=== PATIENT | female | born 1960 | race Caucasian/White ===

== ENCOUNTER 2022-07-19 13:33 | Observation (INO) ==
[2022-07-19] MEDS ORDERED: fentaNYL citrate PF 100 MCG/2 ML VIAL IV STA (13:56)
--- NOTE | 2022-07-19 13:56 | Emergency Department Note ---
History of Present Illness General Chief complaint: Back Injury/Pain Stated complaint: BACK PAIN Time Seen by Provider: 07/19/22 13:40 History of Present Illness Maximum Pain Intensity: 9 This is a 61-year-old female that presents to the emergency department via private vehicle accompanied by sister with complaints of "back pain". The patient notes that earlier today she was operating a string tremor when she notes that while operating it she began with some right mid/upper back pain. She notes it radiates/wraps around to the right lateral ribs. She has never had this happen before. She then went to set the string tremor on the ground and while bending down and then standing back up she felt a tremendous amount of pain to the same region as noted above. She denies any known trauma to the area. She tried a hot bath as well as 800 mg of ibuprofen without any relief. She then notes that she did take 16 mg of morphine sulfate at home that did not seem to help her pain either. She does note recent MRI of the L-spine for left- sided lumbar radiculopathy but this feels completely different. Pain does not radiate down her legs. She notes a tingling sensation in the bilateral hands and feet. She denies any headache or neck pain. No chest pain or abdominal pain. No lower extremity weakness, bowel or bladder incontinence, numbness or tingling in the genital region. Home Medications Medication Instructions Recorded Confirmed Type buspirone 15 mg tablet 15 mg PO QID PRN Anxiety 07/19/22 07/19/22 History fluoxetine 40 mg capsule 80 mg PO DAILY 07/19/22 07/19/22 History omeprazole 20 mg capsule,delayed 20 mg PO DAILY 07/19/22 07/19/22 History release Allergies Allergy/AdvReac Type Severity Reaction Status Date / Time Penicillins Allergy Unknown Verified 07/19/22 18:14 Past Med/Surg History Medical History Depression History of migraine Surgical History No pertinent past surgical history Family History Mother Atrial fibrillation Father Atrial fibrillation Social History Smoking Status: Former smoker Hx Alcohol Use: No Hx Substance Use: No Preferred Language: Jamaican Communication Ability: Effective Independent Living Specialist Required: No Beliefs That Will Affect Care: None Current Living Situation: Alone Feels Safe at Home: Yes Safety Concerns: Feels Safe At This Time Assistive Devices: Denture - Upper, Denture - Lower and Glasses Review of Systems A total of 10 systems reviewed and were otherwise negative Physical Exam Vital Signs Vital Signs - 24 hr 07/19/22 13:36 07/19/22 14:13 07/19/22 14:25 Temperature 36.9 C Temperature Source Temporal Artery Scan Pulse Rate 78 Pulse Rate [Apical] 72 Pulse Rate from SpO2 Sensor Respiratory Rate 19 19 Respiratory Effort / Characteristics Non-Labored Spontaneous Blood Pressure 113/70 Blood Pressure Mean 84 Pulse Oximetry 100 98 100 Oxygen Delivery Method Room Air Room Air Room Air Sepsis Recent Fever Within 48 Hours No Sepsis New/Unexplained Change in Mental Status N/A Sepsis Action Taken by Nursing No Action Required 07/19/22 14:27 07/19/22 15:20 07/19/22 16:15 Temperature Temperature Source Pulse Rate 74 79 70 Pulse Rate [Apical] Pulse Rate from SpO2 Sensor 70 Respiratory Rate 19 15 Respiratory Effort / Characteristics Blood Pressure 119/67 Blood Pressure Mean 84 Pulse Oximetry 100 99 Oxygen Delivery Method Room Air Room Air Sepsis Recent Fever Within 48 Hours Sepsis New/Unexplained Change in Mental Status Sepsis Action Taken by Nursing VITAL SIGNS - Vital signs and triage nursing notes were reviewed. Stable and afebrile. GENERAL -61-year-old female appearing her stated age who is in no acute distress but appears to be in pain and is sitting in a wheelchair at bedside. Communicates well with provider and answers questions appropriately. SKIN - Without rashes. No meningeal or petechial rash. The skin overlying the right upper back is unremarkable. No erythema or edema. No break in the integument. HEAD - NC/AT. EYES - PERRL with EOMI bilaterally. Sclera anicteric. EARS - No deformities of external structures noted on gross examination bilaterally. NOSE - Midline and without cyanosis. No epistaxis or purulent drainage noted. MOUTH/OROPHARYNX - Without perioral cyanosis. NECK - Neck with FROM. No nuchal rigidity. LUNGS - Chest wall symmetric without accessory muscle use, intercostals retractions, or central cyanosis. Normal vesicular breath sounds CTA B/L. No wheezes, rales, or rhonchi appreciated. CARDIAC - RRR with S1/S2. No murmur, rubs, or gallops appreciated. ABDOMEN - Abdominal contour normal without pulsations or visible masses. BS norm oactive all four quadrants. No tenderness, palpable masses, hepatosplenomegaly, or ascites noted. EXTREMITIES - No clubbing or peripheral cyanosis. +5/5 strength noted in UE/LE bilaterally. NEUROLOGIC - Cranial nerves II through XII grossly intact. I am unable to reproduce the tenderness of the mid/upper back region with palpation. No crepitus. No herpetic lesions. PSYCH - A&Ox3 and cooperates fully with examiner. Pt is very pleasant and interacts well with examiner. Course Administered Medications Acetaminophen (Acetaminophen 500 Mg Tab) 1,000 mg PO Q8 KO Stop: 08/18/22 18:44 Last Admin: 07/20/22 06:27 Dose: 1,000 mg Documented By: Admin: 07/19/22 20:42 Dose: 1,000 mg Documented By: MADIE Enoxaparin Sodium (Enoxaparin Inj 40 Mg/0.4 Ml Syr) 40 mg SQ Q24H KO Stop: 08/18/22 18:59 Last Admin: 07/19/22 20:49 Dose: Not Given Documented By: MADIE Hydromorphone HCl (Hydromorphone Inj 0.5 Mg/0.5 Ml Syr) 0.5 mg IV Q6H PRN PRN Reason: Pain Stop: 08/02/22 18:40 Last Admin: 07/20/22 02:34 Dose: 0.5 mg Documented By: Admin: 07/19/22 18:58 Dose: 0.5 mg Documented By: AM Pantoprazole Sodium (Pantoprazole 40 Mg Tab) 40 mg PO DAILY KO Stop: 08/19/22 08:59 Last Admin: 07/20/22 09:06 Dose: 40 mg Documented By: GUILLERMINA Tramadol HCl (Tramadol Hcl 50 Mg Tablet) 50 mg PO Q4H PRN PRN Reason: MODERATE Pain (4,5,6) & Pre PT Stop: 08/18/22 18:28 Last Admin: 07/20/22 06:30 Dose: 50 mg Documented By: Admin: 07/19/22 22:57 Dose: 50 mg Documented By: MADIE Discontinued Medications Diazepam (Diazepam 2 Mg Tablet) 2 mg PO NOW ONE Stop: 07/19/22 20:46 Last Admin: 07/19/22 20:58 Dose: 2 mg Documented By: MADIE Fentanyl Citrate (Fentanyl Citrate Pf 100 Mcg/2 Ml Vial) 50 mcg IV NOW STA Stop: 07/19/22 13:57 Last Admin: 07/19/22 14:05 Dose: 50 mcg Documented By: Hydromorphone HCl (Hydromorphone Inj 0.5 Mg/0.5 Ml Syr) 0.5 mg IV NOW STA Stop: 07/19/22 15:00 Last Admin: 07/19/22 15:04 Dose: 0.5 mg Documented By: RACHAEL Hydromorphone HCl (Hydromorphone Inj 0.5 Mg/0.5 Ml Syr) 0.25 mg IV NOW STA Stop: 07/19/22 16:17 Last Admin: 07/19/22 16:30 Dose: 0.25 mg Documented By: RACHAEL Ioversol (Optiray 320 500ml) 120 ml IV ONCE ONE Stop: 07/19/22 15:16 Last Admin: 07/19/22 15:16 Dose: 120 ml Documented By: RADHA Lidocaine (Lidocaine 5% 1 Patch) 1 patch TD NOW STA Stop: 07/19/22 13:58 Last Admin: 07/19/22 14:08 Dose: 1 patch Documented By: VIKTORIA Medical Decision Making Laboratory Data 07/19/22 14:10 07/19/22 14:10 Lab Results 07/19/22 07/19/22 07/19/22 Range/Units 14:10 14:10 15:08 WBC 9.69 (4.8-10.8) K/ul RBC 4.41 (4.20-5.40) M/uL Hgb 12.0 (12.0-16.0) g/dl Hct 37.2 (37.0-47.0) % MCV 84.4 (80.0-100.0) fL MCH 27.2 (25.0-34.0) pg MCHC 32.3 (32.0-36.0) g/dL RDW Std Deviation 44.3 (36.4-46.3) fL RDW Coeff of Dontae 14.5 (11.5-14.5) % Plt Count 353 (130-400) K/uL MPV 10.4 (9.4-12.4) fL Immature Gran % (Auto) 0.3 % Neut % (Auto) 76.4 % Lymph % (Auto) 14.4 % Bledsoe % (Auto) 5.9 % Eos % (Auto) 2.6 % Baso % (Auto) 0.4 % Neut # (Auto) 7.40 H (1.40-6.50) K/uL Lymph # (Auto) 1.40 (1.2-3.4) K/uL Bledsoe # (Auto) 0.57 (0.11-0.59) K/uL Eos # (Auto) 0.25 (0-0.50) K/uL Baso # (Auto) 0.04 (0-0.2) K/uL Immature Gran # (Auto) 0.03 (0.01-0.20) K/uL Sodium 138 (136-145) mmol/L Potassium 3.8 (3.5-5.1) mmol/L Chloride 104 (98-107) mmol/L Carbon Dioxide 27 (21-32) mmol/L Anion Gap 7 (3-11) BUN 12 (6-23) mg/dl Creatinine 0.69 (0.6-1.2) mg/dl Est Cr Clr Drug Dosing 73.0 ml/min Est GFR ( Amer) 108.1 ml/min Est GFR (Non-Af Amer) 93.3 ml/min BUN/Creatinine Ratio 17.4 (10-20) Glucose 106 H (70-99(Fasting)) mg/dl Calcium 9.5 (8.6-10.3) mg/dl Total Bilirubin 0.5 (0.2-1.0) mg/dl AST 23 (13-39) U/L ALT 16 (7-52) U/L Alkaline Phosphatase 49 (34-104) U/L Troponin I High Sens 31.2 H (0-14) pg/ml Total Protein 6.4 (6.0-8.3) gm/dl Albumin 4.1 (3.4-5.0) gm/dl Globulin 2.3 L (2.5-4.0) gm/dl Albumin/Globulin Ratio 1.8 (0.9-2) SARS-CoV-2, RNA, NAAT NEGATIVE (NEGATIVE) Imaging Data Radiologist's Impression: Thoracic Spine X-Ray 07/19/22 13:56 XR thoracic spine 3V routine CLINICAL HISTORY: R sided mid/upper back pain TECHNIQUE: 3 views of the thoracic spine were obtained. Comparison: None available at the time of this dictation. FINDINGS: No fractures or subluxations are identified. Degenerative changes are seen in the thoracic spine. Alignment appears unremarkable. Prevertebral soft tissues are within normal limits. IMPRESSION: Degenerative changes as above without acute fracture or subluxation. ACT 112: Negative or not required by law. Electronically signed by: Vicente Aguilar M.D. 07/19/2022 3:03 PM Chest CTA 07/19/22 14:59 CT angio chest dissec wo/w con, CT thoracic spine wo con CLINICAL HISTORY: R mid/upper back pain, elevated troponin TECHNIQUE: Multidetector row helical CT of the chest was performed before and after injection of IV contrast. Coronal and sagittal reformations were obtained. Dedicated views of the spine were obtained. Automated dose lowering techniques and/or adjustment according to patient size were utilized for this exam. CT DOSE: 416.29 mGy.cm Comparison: None available at the time of this dictation. FINDINGS: Lungs and pleura: Normal. Heart and pericardium: Heart size is normal. No pericardial effusion. Vessels: No aortic dissection or intramural hematoma is seen. No pulmonary embolus within the limits of a nondedicated exam. Mediastinum and amelie: Scattered partially calcified lymph nodes are seen. Chest wall and lower neck: Small thyroid nodules are noted which do not require follow-up by ACR criteria. Abdomen: Unremarkable. Bones: Unremarkable. No evidence of acute fracture. IMPRESSION: 1. No acute abnormality and in particular no evidence of acute aortic injury or vertebral fracture. 2. A few calcified mediastinal and paraesophageal lymph nodes noted which may represent prior granulomatous disease. ACT 112: Negative or not required by law. Electronically signed by: Vicente Aguilar M.D. 07/19/2022 4:[address] 07/19/22 15:02 CT angio chest dissec wo/w con, CT thoracic spine wo con CLINICAL HISTORY: R mid/upper back pain, elevated troponin TECHNIQUE: Multidetector row helical CT of the chest was performed before and after injection of IV contrast. Coronal and sagittal reformations were obtained. Dedicated views of the spine were obtained. Automated dose lowering techniques and/or adjustment according to patient size were utilized for this exam. CT DOSE: 416.29 mGy.cm Comparison: None available at the time of this dictation. FINDINGS: Lungs and pleura: Normal. Heart and pericardium: Heart size is normal. No pericardial effusion. Vessels: No aortic dissection or intramural hematoma is seen. No pulmonary embolus within the limits of a nondedicated exam. Mediastinum and amelie: Scattered partially calcified lymph nodes are seen. Chest wall and lower neck: Small thyroid nodules are noted which do not require follow-up by ACR criteria. Abdomen: Unremarkable. Bones: Unremarkable. No evidence of acute fracture. IMPRESSION: 1. No acute abnormality and in particular no evidence of acute aortic injury or vertebral fracture. 2. A few calcified mediastinal and paraesophageal lymph nodes noted which may represent prior granulomatous disease. ACT 112: Negative or not required by law. Electronically signed by: Vicente Aguilar M.D. 07/19/2022 4:03 PM [facility] Narrative Patient was seen and evaluated as above in room D02. Review was performed of triage nursing notes and vital signs. After obtaining a thorough history and physical examination the above work up was performed. Patient presents to us today for evaluation of right upper back pain. She appears to be in pain on examination. Her vital signs are stable. There is no fever. No infectious symptoms. No chest pain however she does note the right upper back pain does wrap around to the right lateral rib region. Options of care were discussed with the patient. IV access was established. Labs were drawn. EKG was obtained and reveals normal sinus rhythm at a rate of 70 bpm. QTc 520. QRS 72. TWI noted in leads III, aVF. No ST elevation. Prolonged QT noted. Patient was medicated here with IV analgesia and lidocaine patch. T-spine x-ray was obtained and was essentially negative. Labs reveal no leukocytosis or concerning anemia. No emergent metabolic disturbance. Trop onin was elevated at 31.2. No previous for comparison. With the patient having right upper back pain that wraps around to the right lateral rib/lateral chest wall with minimal improvement with IV analgesia, I did find it reasonable to proceed with CT a of the chest as well as T-spine recon. Results as above. No acute intrathoracic abnormality. With the patient having elevated troponin in the setting of ongoing discomfort despite IV analgesia I do believe that further evaluation and management inpatient setting is warranted. I do suspect that the patient's right upper back pain is likely musculoskeletal however at this time we will continue further work-up. Patient amenable to plan of care. Please refer to further documentation regarding her stay. GCS: 15 In the evaluation and treatment of this patient the following differential diagnoses were entertained: Dissection, PE, pneumothorax, hemothorax, rib fracture, thoracic spine hematoma, thoracic spine radiculopathy, strain, sprain, ACS, among others Impression & Plan Muscle strain, Elevated troponin Discharge Plan Visit Data Chief Complaint: Back Injury/Pain Stated Complaint: BACK PAIN ED Provider: Wilver Thompson ED Midlevel Provider: Jamar Arenas Discharge Problem: Muscle strain, Elevated troponin Patient Disposition: Admitted As Inpatient Condition: Good Discharge Instructions Interventions: ED Discharge Assessment Last Done: 07/19/22 17:11
[2022-07-19] MEDS ORDERED: LIDOCAINE 5% 1 PATCH TD STA (13:57)
[2022-07-19 14:34] LABS: Basophils # (auto) 0.04 K/uL (0-0.2); Basophils % (auto) 0.4 %; Eosinophils # (auto) 0.25 K/uL (0-0.50); Eosinophils % (auto) 2.6 %; Hematocrit (blood only) 37.2 % (37.0-47.0); Immature Granulocytes # (auto) 0.03 K/uL (0.01-0.20); Immature Granulocytes % (auto) 0.3 %; Lymphocytes % (auto) 14.4 %; Mean Corpuscular Hemoglobin 27.2 pg (25.0-34.0); Mean Corpuscular Hgb Conc 32.3 g/dL (32.0-36.0); Mean Corpuscular Volume 84.4 fL (80.0-100.0); Mean Platelet Volume 10.4 fL (9.4-12.4); Monocytes # (auto) 0.57 K/uL (0.11-0.59); Monocytes % (auto) 5.9 %; Neutrophils % (auto) 76.4 %; Platelet Count 353 K/uL (130-400); RDW Coefficient of Variation 14.5 % (11.5-14.5); RDW Standard Deviation 44.3 fL (36.4-46.3); Red Blood Count 4.41 M/uL (4.20-5.40); White Blood Count 9.69 K/ul (4.8-10.8)
[2022-07-19 14:42] LABS: Albumin Globulin Ratio 1.8 (0.9-2); Albumin Level 4.1 gm/dl (3.4-5.0); BUN Creatinine Ratio 17.4 (10-20); Bilirubin,Total 0.5 mg/dl (0.2-1.0); Calcium 9.5 mg/dl (8.6-10.3); Est GFR (African American) 108.1 ml/min; Est GFR (Non-African American) 93.3 ml/min; Globulin 2.3 gm/dl (2.5-4.0); Potassium 3.8 mmol/L (3.5-5.1); Total Protein 6.4 gm/dl (6.0-8.3)
[2022-07-19 14:49] LABS: Troponin I High Sensitivity 31.2 pg/ml (0-14)
[2022-07-19] MEDS ORDERED: HYDROmorphone INJ 0.5 MG/0.5 ML SYR IV STA ×2 (14:59→16:16)
--- NOTE | 2022-07-19 15:04 | XRay Report ---
XR thoracic spine 3V routine CLINICAL HISTORY: R sided mid/upper back pain TECHNIQUE: 3 views of the thoracic spine were obtained. Comparison: None available at the time of this dictation. FINDINGS: No fractures or subluxations are identified. Degenerative changes are seen in the thoracic spine. Ali gnment appears unremarkable. Prevertebral soft tissues are within normal limits. IMPRESSION: Degenerative changes as above without acute fracture or subluxation. ACT 112: Negative or not required by law. Electronically signed by: Vicente Aguilar M.D. 07/19/2022 3:03 PM
[2022-07-19] MEDS ORDERED: OPTIRAY 320 500ml IV ONE (15:15)
--- NOTE | 2022-07-19 16:05 | CT Scan Report ---
CT angio chest dissec wo/w con, CT thoracic spine wo con CLINICAL HISTORY: R mid/upper back pain, elevated troponin TECHNIQUE: Multidetector row helical CT of the chest was performed before and after injection of IV c ontrast. Coronal and sagittal reformations were obtained. Dedicated views of the spine were obtained. Automated dose lowering techniques and/or adjustment according to patient size were utilized for thi s exam. CT DOSE: 416.29 mGy.cm Comparison: None available at the time of this dictation. FINDINGS: Lungs and pleura: Normal. Heart and pericardium: Heart size is normal. No pericardial effusion. Vessels: No aortic dissection or intramural hematoma is seen. No pulmonary embolus within the limits of a nondedicated exam. Mediastinum and amelie: Scattered partially calcified lymph nodes are seen. Chest wall and lower neck: Small thyroid nodules are noted which do not require follow-up by ACR ching mccarthy. Abdomen: Unremarkable. Bones: Unremarkable. No evidence of acute fracture. IMPRESSION: 1. No acute abnormality and in particular no evidence of acute aortic injury or vertebral fracture. 2. A few calcified mediastinal and paraesophageal lymph nodes noted which may represent prior granul omatous disease. ACT 112: Negative or not required by law. Electronically signed by: Vicente Aguilar M.D. 07/19/2022 4:03 PM
[2022-07-19] MEDS ORDERED: Patient's ALLERGY Info needs ENTERED SCH (17:15)
[2022-07-19] MEDS ORDERED: diazePAM 2 MG TABLET PO ONE ×2 (18:18→20:45)
--- NOTE | 2022-07-19 18:19 | History & Physical Report ---
Date of Service July 19, 2022 Assessment & Plan (1) Elevated troponin: (2) Acute electrocardiogram changes: (3) Prolonged QT interval: Plan: Admit to telemetry Patient presenting from home for evaluation of right mid back pain after using a weed patti. Pain seems to be MSK in nature. In the ED, found to have mildly elevated troponin and abnormal EKG. HS trop 31.2 --> 30.5 EKG shows T wave inversions in the inferior and anterior leads. No prior EKGs available for comparison. No prior history of stress test or echocardiogram. CTA chest negative for pulmonary embolism Patient reports increased fatigue over the past several months, attributing this to depression from the passing of her in February. No reports of chest pain or shortness of breath. Continue to trend troponin, resting echo in a.m. to evaluate for wall motion abnormality. QTc 520 -- will hold fluoxetine for now, repeat EKG in a.m. Avoid QTc prolonging agents. (4) Muscle strain: Plan: Right mid back pain along latissimus dorsi muscle -- likely muscle strain/spasm from using weed patti today Thoracic spine CT unremarkable Will give one dose Valium 2mg now. Continue with schedule Tylenol and as needed Tramadol for break through pain. (5) Depression: Plan: Holding fluoxetine as above due to prolonged QTc DVT PROPHYLAXIS SQ Lovenox Patient seen in collaboration with Dr. Olsen. I spent a total of 75 minutes coordinating, documenting, and providing care for this patient excluding time spent in the performance of separately billed services. This included personally reviewing all current laboratories and imaging studies, medication reconciliation, outpatient chart review, and discussion with specialists. History of Present Illness Chief Complaint: Right mid back pain Primary Care Provider: Jairo Alicia MD 61-year-old female with PMH depression, osteoporosis, GERD, and other problems listed below who presents to the ED for evaluation of right mid back pain. History obtained from the patient and review of outpatient PCP records. Patient reports she was running a string patti when she started to develop right mid back pain. Patient states she placed the tremor on the ground and when she stood up the pain intensified. Pain is located in the right mid back and radiates around the right ribs. Patient then presented to the ED for further evaluation. Patient notes that she has been feeling increasingly fatigued over the past few months, attributes this to depression from the passing of her in February. Patient denies chest pain and shortness of breath. No lightheadedness, dizziness, diaphoresis, syncopal events. She denies abdominal pain, nausea, vomiting, diarrhea. No other recent illnesses, fevers, chills. She denies urinary symptoms. In the ED, thoracic spine CT and chest CTA are unremarkable for acute findings. HS trop 31.2 --> 30.5. EKG shows T wave inversions in the inferior and anterior leads, no prior EKGs available for comparison. Patient was given IV fentanyl, IV Dilaudid, and a lidocaine patch. She reports improvement in her pain. Allergies Allergy/AdvReac Type Severity Reaction Status Date / Time Penicillins Allergy Unknown Verified 07/19/22 18:14 Home Medications Medication Instructions Recorded Confirmed Type buspirone 15 mg tablet 15 mg PO QID PRN Anxiety 07/19/22 07/19/22 History fluoxetine 40 mg capsule 80 mg PO DAILY 07/19/22 07/19/22 History omeprazole 20 mg capsule,delayed 20 mg PO DAILY 07/19/22 07/19/22 History release Past Med/Surg History Medical History Depression History of migraine Surgical History No pertinent past surgical history Family History Mother Atrial fibrillation Father Atrial fibrillation Social History Smoking Status: Former smoker Hx Alcohol Use: No Hx Substance Use: No Preferred Language: Turkmen Communication Ability: Effective Budget Officer Required: No Beliefs That Will Affect Care: None Current Living Situation: Alone Feels Safe at Home: Yes Safety Concerns: Feels Safe At This Time Assistive Devices: Denture - Upper, Denture - Lower and Glasses Review of Systems Review of Systems: ROS per HPI, all other systems reviewed and negative Physical Exam Constitutional: WD/WN, vitals as above Eyes: PERRL, conjunctivae normal, anicteric sclerae ENMT: external ear and nose normal, oropharynx normal Respiratory: normal respiratory effort, lungs clear to auscultation Cardiovascular: Rate/Rhythm: regular rate and regular rhythm Vessels: normal peripheral pulses Extremities: no edema Gastrointestinal (Abdomen): normal bowel sounds, soft, nontender, no hepatosplenomegaly Musculoskeletal: tenderness to palpation over right latissimus dorsi Skin: no rashes, warm and dry Neurologic: PERRL, EOMI, accommodation nl, no face palsy, no dysarthria Psychiatric: A+Ox3, euthymic affect Results & Data Results & Data Vital Signs (Past 12 Hours) Vital Signs Temp Pulse Pulse Resp BP Pulse Ox O2 Del Method 07/19/22 17:00 74 17 141/94 H 98 Room Air 07/19/22 16:15 70 15 119/67 99 Room Air 07/19/22 15:20 79 19 100 Room Air 07/19/22 14:27 74 07/19/22 14:25 72 19 100 Room Air 07/19/22 14:13 98 Room Air 07/19/22 13:36 36.9 C 78 19 113/70 100 Room Air Laboratory Results Short CBC 07/19/22 Range/Units 14:10 WBC 9.69 (4.8-10.8) K/ul Hgb 12.0 (12.0-16.0) g/dl Hct 37.2 (37.0-47.0) % Plt Count 353 (130-400) K/uL BMP 07/19/22 14:10 Sodium 138 Potassium 3.8 Chloride 104 Carbon Dioxide 27 BUN 12 Creatinine 0.69 Glucose 106 H Calcium 9.5 Liver Function 07/19/22 Range/Units 14:10 Total Bilirubin 0.5 (0.2-1.0) mg/dl AST 23 (13-39) U/L ALT 16 (7-52) U/L Alkaline Phosphatase 49 (34-104) U/L Albumin 4.1 (3.4-5.0) gm/dl Diagnostic Findings Thoracic Spine X-Ray 07/19/22 13:56 XR thoracic spine 3V routine CLINICAL HISTORY: R sided mid/upper back pain TECHNIQUE: 3 views of the thoracic spine were obtained. Comparison: None available at the time of this dictation. FINDINGS: No fractures or subluxations are identified. Degenerative changes are seen in the thoracic spine. Alignment appears unremarkable. Prevertebral soft tissues are within normal limits. IMPRESSION: Degenerative changes as above without acute fracture or subluxation. ACT 112: Negative or not required by law. Electronically signed by: Vicente Aguilar M.D. 07/19/2022 3:03 PM Chest CTA 07/19/22 14:59 CT angio chest dissec wo/w con, CT thoracic spine wo con CLINICAL HISTORY: R mid/upper back pain, elevated troponin TECHNIQUE: Multidetector row helical CT of the chest was performed before and after injection of IV contrast. Coronal and sagittal reformations were obtained. Dedicated views of the spine were obtained. Automated dose lowering techniques and/or adjustment according to patient size were utilized for this exam. CT DOSE: 416.29 mGy.cm Comparison: None available at the time of this dictation. FINDINGS: Lungs and pleura: Normal. Heart and pericardium: Heart size is normal. No pericardial effusion. Vessels: No aortic dissection or intramural hematoma is seen. No pulmonary embolus within the limits of a nondedicated exam. Mediastinum and amelie: Scattered partially calcified lymph nodes are seen. Chest wall and lower neck: Small thyroid nodules are noted which do not require follow-up by ACR criteria. Abdomen: Unremarkable. Bones: Unremarkable. No evidence of acute fracture. IMPRESSION: 1. No acute abnormality and in particular no evidence of acute aortic injury or vertebral fracture. 2. A few calcified mediastinal and paraesophageal lymph nodes noted which may represent prior granulomatous disease. ACT 112: Negative or not required by law. Electronically signed by: Vicente Aguilar M.D. 07/19/2022 4:[address] 07/19/22 15:02 CT angio chest dissec wo/w con, CT thoracic spine wo con CLINICAL HISTORY: R mid/upper back pain, elevated troponin TECHNIQUE: Multidetector row helical CT of the chest was performed before and after injection of IV contrast. Coronal and sagittal reformations were obtained. Dedicated views of the spine were obtained. Automated dose lowering techniques and/or adjustment according to patient size were utilized for this exam. CT DOSE: 416.29 mGy.cm Comparison: None available at the time of this dictation. FINDINGS: Lungs and pleura: Normal. Heart and pericardium: Heart size is normal. No pericardial effusion. Vessels: No aortic dissection or intramural hematoma is seen. No pulmonary embolus within the limits of a nondedicated exam. Mediastinum and amelie: Scattered partially calcified lymph nodes are seen. Chest wall and lower neck: Small thyroid nodules are noted which do not require follow-up by ACR criteria. Abdomen: Unremarkable. Bones: Unremarkable. No evidence of acute fracture. IMPRESSION: 1. No acute abnormality and in particular no evidence of acute aortic injury or vertebral fracture. 2. A few calcified mediastinal and paraesophageal lymph nodes noted which may represent prior granulomatous disease. ACT 112: Negative or not required by law. Electronically signed by: Vicente Aguilar M.D. 07/19/2022 4:03 PM Code Status & VTE Plan VTE Prophylaxis Plan VTE Prophylaxis will be ordered: Yes Supervising Physician Co-Signing Physician Notes Patient was seen and examined independently at bedside. Chart reviewed. Case discussed with Duyen FUENTES and agree with the documentation above except as noted below. In summary, this is a 61 year old female who presented to the ED with right mid back pain, likely MSK. CT reviewed. During my encounter, she states she is in 7/10 pain and asking for pain meds. States morphine and fentanyl did not help but dilaudid did. Agree with pain control- might need MRI and/or ortho eval if continues to have significant pain or neuro symptoms. She was also incidentally found to have minimally elevated troponin along with some EKG changes but there is no prior EKG for comparison. Doubt ACS but agree with serial trop, tele, repeat EKG and echo. Agree with holding further QTc prolonging meds- monitor QTc in repeat EKG in am. On exam- AAO, sitting in bed, in mild discomfort due to pain, chest clear, heart sounds normal, abd benign, non focal neuro exam, no edema. Rest as per the note above.
[2022-07-19] MEDS ORDERED: busPIRone 15 MG TAB PO PRN (18:29)
[2022-07-19] MEDS ORDERED: MoRPHine SULFATE 2 MG/ML CARP IV PRN (18:29)
[2022-07-19] MEDS: HYDROmorphone INJ 0.5 MG/0.5 ML SYR IV PRN (18:58)
[2022-07-19] MEDS ORDERED: ENOXAPARIN INJ 40 MG/0.4 ML SYR SQ SCH (19:00)
[2022-07-19] MEDS: ACETAMINOPHEN 500 MG TAB PO SCH (20:42)
[2022-07-19] MEDS: traMADol HCL 50 MG TABLET PO PRN (22:57)
[2022-07-20] MEDS: HYDROmorphone INJ 0.5 MG/0.5 ML SYR IV PRN (02:34)
[2022-07-20 04:12] LABS: Hemoglobin 10.8 g/dl (12.0-16.0); Mean Corpuscular Hemoglobin 27.2 pg (25.0-34.0); Mean Corpuscular Hgb Conc 31.8 g/dL (32.0-36.0); Mean Corpuscular Volume 85.6 fL (80.0-100.0); Mean Platelet Volume 10.3 fL (9.4-12.4); Platelet Count 302 K/uL (130-400); RDW Coefficient of Variation 14.7 % (11.5-14.5); Red Blood Count 3.97 M/uL (4.20-5.40); White Blood Count 5.89 K/ul (4.8-10.8)
[2022-07-20 04:27] LABS: BUN Creatinine Ratio 13.9 (10-20); Calcium 8.7 mg/dl (8.6-10.3); Chol HDL Ratio 4.6 (0-5); Est GFR (Non-African American) 89.8 ml/min; Potassium 3.8 mmol/L (3.5-5.1)
[2022-07-20] MEDS: ACETAMINOPHEN 500 MG TAB PO SCH ×2 (06:27→14:05)
[2022-07-20] MEDS: traMADol HCL 50 MG TABLET PO PRN ×2 (06:30→12:58)
--- NOTE | 2022-07-20 06:33 | Electrocardiogram Report ---
Test Reason : Blood Pressure : / mmHG Vent. Rate : 070 BPM Atrial Rate : 070 BPM P-R Int : 150 ms QRS Dur : 072 ms QT Int : 482 ms P-R-T Axes : 078 069 036 degrees QTc Int : 520 ms Normal sinus rhythm Possible Anterior infarct , age undetermined Prolonged QT Abnormal ECG No previous ECGs available Confirmed by Jb Warner ([id number]) on 07/20/2022 6:33:24 AM Referred By: REFERRED SELF Confirmed By:Jb Warner
[2022-07-20 07:18] LABS: Appearance Urine Clear (Clear); Bacteria Urine Automated Negative (Negative); Bilirubin Urine Negative (Negative); Blood Urine Trace (Negative); Cast Urine Automated 0 /lpf (0-5); Color Urine Yellow; Epithelial Cell Urine Auto 0-5 /lpf (0-5); Glucose Urine UA Negative (Negative); Ketones Urine Negative (Negative); Leukocyte Esterase Urine Negative (Negative); Nitrite Urine Negative (Negative); Protein Urine Negative (Negative); RBC Urine Automated 0-4 /hpf (0-4); Specific Gravity Urine 1.018 (1.000-1.030); Urobilinogen Urine Negative (Negative)
[2022-07-20 08:10] LABS: Estimated Average Glucose 128 mg/dl; Hemoglobin A1C 6.1 % (4.5-5.6)
--- NOTE | 2022-07-20 08:55 | Electrocardiogram Report ---
Test Reason : Blood Pressure : / mmHG Vent. Rate : 071 BPM Atrial Rate : 071 BPM P-R Int : 176 ms QRS Dur : 084 ms QT Int : 458 ms P-R-T Axes : 079 087 030 degrees QTc Int : 497 ms Normal sinus rhythm Low voltage QRS Cannot rule out Anterior infarct (cited on or before 19-JUL-2022) Abnormal ECG When compared with ECG of 19-JUL-2022 14:16, No significant change was found Confirmed by Claude Erickson ([id number]) on 07/20/2022 8:55:41 AM Referred By: REFERRED SELF Confirmed By:Gm Erickson
--- NOTE | 2022-07-20 08:56 | Cardiology Consultation ---
Date of Consultation July 20, 2022 Assessment & Plan (1) Atypical chest pain: (2) Back pain: (3) Elevated troponin: (4) Prolonged QT interval: Plan IMPRESSION: 61 year old female with no prior cardiac history presented with acute severe right sided back pain after doing yard work yesterday. Currently chest pain free, but back pain persists. Symptoms likely due to an orthopedic/msk cause. Resting Echo pending. PLAN: 1. Symptoms are very atypical with cardiac chest pain, however, given nonspecific EKG changes and HS trop elevation, will rule out ischemia with dobutamine stress echo this afternoon. 2. QTc initially prolonged, Prozac has been held. QTC improved this morning- avoid the use of QTC prolonging agents. Case discussed with Dr. Bush. Supervising Physician Co-Signing Physician Notes Patient seen and examined personally. Full assessment and evaluation as above. Patient with severe back pain incited by mechanical activity atypical for angina or myocardial injury EKGs without acute change other than QT prolongation as above. Echocardiogram with preserved LV systolic function Patient referred this morning and underwent dobutamine stress echocardiography with study demonstrating normal LV systolic function at rest and stress without evidence of ischemia by EKG and echocardiographic criteria. No cardiac symptoms at 90% age-predicted maximal heart Impression: Noncardiac back pain History of Present Illness Reason for Consultation: Chest pain, elevated high-sensitivity troponin, abnormal EKG. Requesting Physician: Viola jung Attending Physician: Gilma Rowan MD History of Present Illness 61-year-old female presented to the [facility] emergency department due to an episode of right-sided back discomfort. Patient was using a weed patti in her yard and started to develop the pain. When she bent over to place the equipment on the ground and stood back up her pain intensified to the point where she could barely stand up. Pain was located in the right mid back and radiated around to the right ribs. Went into her house and took pain medication- first ibuprofen without relief then x1 tablet of morphine (prescribed to her late )- symptoms did not improve. She called her sister who brought her to the ED. In the ED thoracic spine CT and chest CTA were unremarkable for acute findings. She was treated with IV fentanyl, IV Dilaudid, and a lidocaine patch with mild improvement in her pain. High-sensitivity troponins minimally elevated at 31.2 >> 30.5>>37.4>>33.2 EKG showed T wave inversions in the inferior and lateral leads-no prior EKGs available for comparison. QTc was prolonged at 520 ms. Prozac held. Repeat EKG this morning showing normal sinus rhythm with inferior/lateral changes-unchanged from yesterday. QTc mildly improved to 497 ms. She denies any exertional chest pain or shortness of breath. Notes fatigue over the last 3 months which she attributed to stress from the recent passing of her due to cancer. No lightheadedness. No orthopnea, PND or lower extremity edema. Does have leg "heaviness" at times- recently diagnosed with sciatica. Pre viously mentioned numbness and tingling in her BL fingers and toes- now has resolved. She declines any prior cardiac history- Notes her blood pressure is frequently low. Tele: SR 60-70s Past medical history: Osteoporosis Chronic back pain GERD Depression Allergies Allergy/AdvReac Type Severity Reaction Status Date / Time Penicillins Allergy Unknown Verified 07/19/22 18:14 Home Medications Medication Instructions Recorded Confirmed Type buspirone 15 mg tablet 15 mg PO QID PRN Anxiety 07/19/22 07/19/22 History fluoxetine 40 mg capsule 80 mg PO DAILY 07/19/22 07/19/22 History omeprazole 20 mg capsule,delayed 20 mg PO DAILY 07/19/22 07/19/22 History release Patient History Medical History Depression History of migraine Surgical History No pertinent past surgical history Family History Mother Atrial fibrillation Father Atrial fibrillation Social History Smoking Status: Former smoker Hx Alcohol Use: No Hx Substance Use: No Preferred Language: Botswanan Communication Ability: Effective Repatcher Required: No Beliefs That Will Affect Care: None Current Living Situation: Alone Feels Safe at Home: Yes Safety Concerns: Feels Safe At This Time Assistive Devices: Denture - Upper, Denture - Lower and Glasses Review of Systems Review of Systems: All systems reviewed & are unremarkable except as noted in HPI & below Physical Exam Constitutional: WD/WN, vitals as above no acute distress Eyes: PERRL, conjunctivae normal, anicteric sclerae ENMT: external ear and nose normal, oropharynx normal Neck: trachea midline Respiratory: normal respiratory effort, lungs clear to auscultation Cardiovascular: RRR, no murmur, no edema Heart Sounds: normal S1 and normal S2; no murmur Vessels: no JVD Extremities: no edema Gastrointestinal (Abdomen): normal bowel sounds, soft, nontender, no hepatos plenomegaly Musculoskeletal: no cyanosis or clubbing, extremities motor strength 5/5 Skin: no rashes, warm and dry Psychiatric: A+Ox3, euthymic affect Results & Data Vital Signs (Past 12 Hours) Vital Signs Temp Pulse Pulse Resp BP Pulse Ox O2 Del Method 07/20/22 08:13 36.5 C 71 19 99/63 L 97 Room Air 07/20/22 07:21 66 07/19/22 22:00 65 07/20/22 03:00 36.5 C 76 18 105/60 95 Room Air 07/19/22 22:52 36.6 C 80 18 107/67 95 Room Air Laboratory Results Cardiac Enzymes 07/19/22 07/19/22 07/19/22 Range/Units 14:10 16:34 22:32 AST 23 (13-39) U/L Troponin I High Sens 31.2 H 30.5 H 37.4 H (0-14) pg/ml 07/20/22 Range/Units 03:51 AST (13-39) U/L Troponin I High Sens 33.2 H (0-14) pg/ml Lipids 07/20/22 Range/Units 03:51 Triglycerides 86 (0-150) mg/dl Cholesterol 173 (0-200) mg/dl HDL Cholesterol 38 mg/dl Cholesterol/HDL Ratio 4.6 (0-5) CBC 07/19/22 07/20/22 Range/Units 14:10 03:51 WBC 9.69 5.89 (4.8-10.8) K/ul RBC 4.41 3.97 L (4.20-5.40) M/uL Hgb 12.0 10.8 L (12.0-16.0) g/dl Hct 37.2 34.0 L (37.0-47.0) % Plt Count 353 302 (130-400) K/uL Neut # (Auto) 7.40 H (1.40-6.50) K/uL Lymph # (Auto) 1.40 (1.2-3.4) K/uL Robertson # (Auto) 0.57 (0.11-0.59) K/uL Eos # (Auto) 0.25 (0-0.50) K/uL Baso # (Auto) 0.04 (0-0.2) K/uL Comprehensive Metabolic Panel 07/19/22 07/20/22 Range/Units 14:10 03:51 Sodium 138 136 (136-145) mmol/L Potassium 3.8 3.8 (3.5-5.1) mmol/L Chloride 104 106 (98-107) mmol/L Carbon Dioxide 27 28 (21-32) mmol/L BUN 12 10 (6-23) mg/dl Creatinine 0.69 0.72 (0.6-1.2) mg/dl Glucose 106 H 96 (70-99(Fasting)) mg/dl Calcium 9.5 8.7 (8.6-10.3) mg/dl AST 23 (13-39) U/L ALT 16 (7-52) U/L Alkaline Phosphatase 49 (34-104) U/L Total Protein 6.4 (6.0-8.3) gm/dl Albumin 4.1 (3.4-5.0) gm/dl Intake and Output 07/19/22 07/20/22 07/20/22 22:59 06:59 14:59 Intake Total 250 / 250 Balance 250 / 250 Intake: Oral 250 / 250 Other: Other Intake Source NPO Weight 61.8 kg 61.7 kg Weight Measurement Method Built in Bedscale Standing Scale Diagnostic Findings DSE 07/20/2022 PENDING*
[2022-07-20] MEDS ORDERED: PANTOprazole 40 MG TAB PO SCH (09:00)
[2022-07-20] MEDS ORDERED: METOPROLOL TARTRATE 1 MG/ML VIAL IV ONE (11:25)
[2022-07-20] MEDS ORDERED: DOBUTamine HCL 12.5 MG/ML 20 ML VIAL IV ONE (11:25)
[2022-07-20] MEDS ORDERED: ATROPINE SULFATE 0.1 MG/ML 10ML SYR IV ONE (11:25)
[2022-07-20] MEDS ORDERED: CYCLOBENZAPRINE HCL 10 MG TAB PO STA (14:12)
[2022-07-20] MEDS ORDERED: IBUPROFEN 200 MG TAB PO PRN (14:19)
--- NOTE | 2022-07-20 17:54 | Discharge Summary ---
Date of Service July 20, 2022 Admission HPI Per Admitting Provider 61-year-old female with PMH depression, osteoporosis, GERD, and other problems listed below who presents to the ED for evaluation of right mid back pain. History obtained from the patient and review of outpatient PCP records. Patient reports she was running a string patti when she started to develop right mid back pain. Patient states she placed the tremor on the ground and when she stood up the pain intensified. Pain is located in the right mid back and radiates around the right ribs. Patient then presented to the ED for further evaluation. Patient notes that she has been feeling increasingly fatigued over the past few months, attributes this to depression from the passing of her in February. Patient denies chest pain and shortness of breath. No lightheadedness, dizziness, diaphoresis, syncopal events. She denies abdominal pain, nausea, vomiting, diarrhea. No other recent illnesses, fevers, chills. She denies urinary symptoms. In the ED, thoracic spine CT and chest CTA are unremarkable for acute findings. HS trop 31.2 --> 30.5. EKG shows T wave inversions in the inferior and anterior leads, no prior EKGs available for comparison. Patient was given IV fentanyl, IV Dilaudid, and a lidocaine patch. She reports improvement in her pain. Admission Exam Per Admitting Provider Eyes: PERRL, conjunctivae normal, anicteric sclerae ENMT: external ear and nose normal, oropharynx normal Respiratory: normal respiratory effort, lungs clear to auscultation Cardiovascular: Rate/Rhythm: regular rate and regular rhythm Vessels: normal peripheral pulses Extremities: no edema Gastrointestinal (Abdomen): normal bowel sounds, soft, nontender, no hepatosplenomegaly Musculoskeletal: tenderness to palpation over right latissimus dorsi Skin: no rashes, warm and dry Neurologic: PERRL, EOMI, accommodation nl, no face palsy, no dysarthria Psychiatric: A+Ox3, euthymic affect Principal Diagnosis Upper back pain Muscle sprain/spasm Discharge Exam Constitutional + well hydrated; no acute distress Eyes PERRL, conjunctivae normal, anicteric sclerae ENMT external ear and nose normal, oropharynx normal Respiratory normal respiratory effort, lungs clear to auscultation Cardiovascular Rate/Rhythm: regular rate and regular rhythm S1 S2 Gastrointestinal (Abdomen) normal bowel sounds, soft, nontender, no hepatosplenomegaly Musculoskeletal Tenderness and tension over right paraverterbral muscles in the thoracic region Neurologic PERRL, EOMI, accommodation nl, no face palsy, no dysarthria Psychiatric A+Ox3, euthymic affect Discharge Data Allergies Allergy/AdvReac Type Severity Reaction Status Date / Time Penicillins Allergy Unknown Verified 07/19/22 18:14 Consultations 07/19/22 16:17 ED Decision to Admit Stat 07/20/22 07:28 Consult Cardiology Routine Ordered Studies 07/19/22 14:59 CT angio chest dissec wo/w con Stat 07/19/22 15:02 CT thoracic spine wo con Stat Hospital Course (1) Elevated troponin: (2) Acute electrocardiogram changes: (3) Prolonged QT interval: Patient presenting from home for evaluation of right mid back pain after using a weed patti. Back pain is musculoskeletal in nature In the ED, she was found to have mildly elevated troponin and abnormal EKG. HS trop 31.2 --> 30.5 EKG shows T wave inversions in the inferior and anterior leads. No prior EKGs available for comparison. No prior history of stress test or echocardiogram. CTA chest negative for pulmonary embolism Patient reports increased fatigue over the past several months, attributing this to depression from the passing of her in February. No reports of chest pain or shortness of breath. Patient was evaluated by Cardiology and had a dobutamine stress echo which was negative for ischemia (4) Muscle strain: Right mid back pain along latissimus dorsi muscle Muscle strain/spasm from using weed patti Thoracic spine CT unremarkable Stop all opioids Started ibuprofen and flexeril prn Back pain significantly improved (5) Depression: On fluoxetine Total Time Total Time Spent Total Time Spent (In Minutes): 40 Total Time Includes: Examination of the Patient, Discharge Planning and Medication Reconciliation Discharge Plan Discharge Items Patient Disposition: Home - Self-Care Reason For Visit: Upper back pain Discharge Diagnosis: Upper back pain Muscle sprain/spasm Condition on Discharge: Good Activity: Resume your previous activity Non-emergency contact: Primary Care Provider Call non-emergency contact if: you have any medication questions and your symptoms worsen Follow-up/Referrals: Jairo Alicia MD [Primary Care Provider] - Diet: Regular Addtl Attending Provider Instructions: Mrs Casanova You came to the hospital after developing upper back pain while cutting grass/weed You were extensively evaluated. You are being discharged on flexeril as needed for muscle spasm Continue tylenol and ibuprofen as we discussed. Follow up with your Primary Doctor. It was a pleasure taking care of you. Pending Studies at Discharge: No Stand-Alone Forms: My [facility], Smoking Cessation Medications and DC Order Prescriptions: New acetaminophen [Tylenol Extra Strength] 500 mg Tablet 1,000 mg PO Q8H PRN (Reason: Mild pain) Qty: 30 0RF ibuprofen 200 mg Tablet 400 mg PO TID PRN (Reason: Moderate or severe pain) Qty: 30 0RF Rx Instructions: Take with meals cyclobenzaprine 10 mg tablet 10 mg PO BID PRN (Reason: muscle spasm) Qty: 7 0RF Continued fluoxetine 40 mg capsule 80 mg PO DAILY omeprazole 20 mg capsule,delayed release(DR/EC) 20 mg PO DAILY buspirone 15 mg tablet 15 mg PO QID PRN (Reason: Anxiety) Discharge Orders: Discharge Order (Routine); Ordered 07/20/22 Ordered By: Gilma Whitmore/Other Patient Handouts: A1C Admission Data Admit Date/Time: 07/19/22 16:28 Attending Provider: Gilma Rowan I. Admit Provider: Hoang Olsen Primary Care Provider: Jairo Alicia Other Providers: Hoang Olsen ; Urszula Caba ; Reginaldo Yin
== END 2022-07-20 18:18 | disposition home or self-care (01) ==
LOC: ED 13:33 → 4W 13:33 → SUATTDRO 16:28 → 4W 17:11